=== PATIENT | female | born 1990 ===

== ENCOUNTER 2018-07-18 08:49 | Observation (INO) | payer OTHER ==
[2018-07-18] MEDS ORDERED: ceFAZolin 2 GM/DEXTROSE 100 ML IV ONE (11:30)
[2018-07-18] MEDS ORDERED: LIDOCAINE 1% 2 ML INJ ID PRN (11:36)
[2018-07-18] MEDS ORDERED: LR 1,000 ML IV ONE (11:36)
[2018-07-18] MEDS ORDERED: BUPIVACAINE/EPI 0.25% 30 ML SDV ONE (12:03)
[2018-07-18] MEDS ORDERED: THROMBIN (BOVINE) 5,000 UNIT VIAL TP ONE (12:04)
[2018-07-18] MEDS ORDERED: POLYMYXIN B SULFATE 500,000 UNIT/10 ML SYR IRR ONE (12:04)
[2018-07-18] MEDS ORDERED: BACITRACIN 50,000 UNITS/10 ML SYR IRR ONE (12:04)
[2018-07-18] MEDS ORDERED: MIDAZOLAM 2 MG/2 ML VIAL IVP ONE (12:05)
--- NOTE | 2018-07-18 12:06 | PDANEPAE ---
ANE History of Present Illness here for L Tibia tubercle ANE Past Medical History - Cardiovascular History Hx Hypertension: No Hx Arrhythmias: No Hx Chest Pain: No Hx Coronary Artery / Peripheral Vascular Disease: No Hx CHF / Valvular Disease: No Hx Palpitations: No - Pulmonary History Hx COPD: No Hx Asthma/Reactive Airway Disease: No Hx Recent Upper Respiratory Infection: No Hx Oxygen in Use at Home: No Hx Sleep Apnea: No Sleep Apnea Screening Result - Last Documented: Negative - Neurologic History Hx Cerebrovascular Accident: No Hx Seizures: No Hx Dementia: No - Endocrine History Hx Diabetes: No - Renal History Hx Renal Disorders: No - Liver History Hx Hepatic Disorders: No Hepatic History Comment: ED REMVD. - Neurological & Psychiatric Hx Hx Neurological and Psychiatric Disorders: No - Cancer History Hx Cancer: No - Congenital Disorder History Hx Congenital Disorders: No - GI History Hx Gastrointestinal Disorders: Yes Gastrointestinal History Comment: GERD - Other Health History Other Health History: MENIERE'S DX. CHRONIC SINUS PRESSURE/NASAL DRIP. LEGS CAN BRUISE EASILY - Chronic Pain History Chronic Pain: Yes (ELY KNEE'S) - Surgical History Prior Surgeries: ELY TIBIAL OSTEOTOMY 01/2018. ELY KNEE SCOPES. ED. SINUS X2 ANE Review of Systems Review of systems is: negative Review of Systems: - Exercise capacity Exercise capacity: >=4 METS METS (RN): 4 METS ANE Patient History - Allergies Allergies/Adverse Reactions: acetaminophen [From Percocet] Allergy (Verified 07/10/18 13:54) Itching Iodinated Contrast- Oral and IV Dye Allergy (Verified 07/10/18 13:54) Rash/Itching oxycodone [From Percocet] Allergy (Verified 07/10/18 13:54) Itching tramadol Allergy (Verified 07/10/18 13:54) Itching - Home Medications Home medications: home medication list seen and reviewed Home Medications: Acetaminophen [Tylenol 325mg (*)] 325 mg PO DAILY PRN 07/10/18 [Last Taken 07/11] DAPSONE [ACZONE] 1 sandro TP BID 07/10/18 [Last Taken 07/13/18] Herbals/Supplements -Info Only 1 ea PO DAILY 07/10/18 [Last Taken 07/18/18 06:00 ] Ipratropium 0.06% Nasal [Atrovent 0.06% Nasal (RX)] 1 sprays EACHNARE DAILY [Last Taken 07/18/18 06:00] Ranitidine HCl [Zantac] 150 mg PO DAILY 07/10/18 [Last Taken 07/18/18 06:00] Spironolactone [Aldactone 50 MG (RX)] 200 mg PO DAILY 07/10/18 [Last Taken 07/17 06:00] Tretinoin [Retin-A] 1 sandro TP DAILY 07/10/18 [Last Taken 07/17/18 20:00] Triamcinolone Acetonide [Nasacort] 1 spray NS DAILY 07/10/18 [Last Taken 06:00] - Smoking Hx Smoking Status: Never smoked ANE Labs/Vital Signs - Vital Signs Vital Signs: reviewed preoperatively; see RN documention for details Height: 170.18 cm Weight: 58.967 kg ANE Physical Exam - Airway Neck exam: FROM Mallampati Score: Class 1 - Pulmonary Pulmonary: no respiratory distress - Cardiovascular Cardiovascular: regular rate and rhythym - ASA Status ASA Status: I ANE Anesthesia Plan Anesthesia Plan: GA w LMA Regional Anesthesia: adductor canal FNB
--- NOTE | 2018-07-18 12:10 | PDHPUP ---
History & Physical Update H&P update statement: This history and physical update is based on an assessment of the patient which was completed after admission or registration (within 24 hours), but prior to the surgery/procedure. H&P update: H&P reviewed & patient examined, no change in patient's condition since H&P completed (Patient seen/examined in conjunction with Dr. Medel.)
[2018-07-18] MEDS ORDERED: fentaNYL 100 MCG/2 ML INJ ONE ×3 (12:15→15:22)
[2018-07-18] MEDS ORDERED: BUPIVACAINE 0.5% 30 ML SDV ONE (12:20)
[2018-07-18] MEDS ORDERED: PROPOFOL/EMULSION 500 MG/50 ML BOTTLE IV ONE ×2 (12:26→14:00)
[2018-07-18] MEDS ORDERED: EPINEPHrine 30 MG/30 ML MDV (0.1 MG/0.1 ML) ONE (12:27)
[2018-07-18] MEDS ORDERED: DEXAMETHASONE 4 MG/ML VIAL ONE ×2 (12:51)
[2018-07-18] MEDS ORDERED: ONDANSETRON 4 MG/2 ML VIAL ONE (12:51)
[2018-07-18] MEDS ORDERED: NS 500 ML IV PRN (13:04)
[2018-07-18] MEDS ORDERED: LR 500 ML IV PRN (13:04)
[2018-07-18] MEDS ORDERED: PROMETHAZINE HCL 25 MG/ML INJ IVP PRN (13:04)
[2018-07-18] MEDS ORDERED: NALOXONE HCL 0.4 MG/ML INJ IVP PRN (13:04)
[2018-07-18] MEDS ORDERED: HYDROmorphONE/DILAUDID 2 MG/ML INJ IVP PRN (13:04)
[2018-07-18] MEDS ORDERED: fentaNYL 100 MCG/2 ML INJ IVP PRN (13:04)
[2018-07-18] MEDS ORDERED: ALBUTEROL 3 ML DEYVIAL IH PRN (13:04)
[2018-07-18] MEDS ORDERED: ONDANSETRON 4 MG/2 ML VIAL IVP PRN ×2 (13:04→15:12)
[2018-07-18] MEDS ORDERED: DEXAMETHASONE 4 MG/ML VIAL IVP PRN (13:04)
[2018-07-18] MEDS ORDERED: BUPIVACAINE/EPI 0.5% 30 ML SDV ONE (14:52)
--- NOTE | 2018-07-18 15:11 | POSTOPPROG ---
Post Op Note Date of Operation: 07/18/18 Surgeon: Justin Medel Safety Instructor: Genny Whitman, NADINE Anesthesia: GET(General Endotracheal) Pre-op Diagnosis: Left tibial tubercle non-union Post-op Diagnosis: Left tibial tubercle non-union Procedure: Left tibia HW removal, anterior iliac crest bone graft, knee arthroscopy Inf/Abcess present in the surg proc area at time of surgery?: No Depth: Deep Incisional (Fascial) EBL: 50-100 Specimen(s): Left tibial tubercle non-union
[2018-07-18] MEDS ORDERED: HYDROmorphONE/DILAUDID 1 MG/ML INJ IVP PRN (15:12)
[2018-07-18] MEDS ORDERED: LR 1,000 ML IV SCH (15:30)
--- NOTE | 2018-07-18 15:36 | POSTANESTH ---
Post Anesthetic Evaluation Cardiovascular Status: Normal, Stable Respiratory Status: Normal, Stable Level of Consciousness/Mental Status: Can Participate in Eval Pain Control: Adequate, Prn Tx Ordered Nausea/Vomiting Control: Adequate, Prn Tx Ordered Complications Possibly Related to Anesthesia: None Noted
[2018-07-18] MEDS: HYDROCODONE/APAP 5/325 TAB PO PRN ×2 (17:09→20:22)
[2018-07-19] MEDS: HYDROCODONE/APAP 5/325 TAB PO PRN ×3 (01:52→09:59)
--- NOTE | 2018-07-19 02:34 | GOP ---
DATE OF OPERATION: 07/18/2018 SURGEON: Justin Medel MD HEDIS REGISTERED NURSE RN: Genny Whitman PA-C ANESTHESIA: General plus adductor block. ANESTHESIOLOGIST: Noble Dick MD PREOPERATIVE DIAGNOSIS: 1. Left knee tibial tubercle osteotomy nonunion. 2. Left knee retained painful hardware. 3. Left knee intra-articular derangement concerning for chondral defect versus lateral meniscus tear. POSTOPERATIVE DIAGNOSIS: 1. Left knee tibial tubercle osteotomy nonunion. 2. Left knee retained painful hardware. 3. Left knee patellar chondral defect. PROCEDURE PERFORMED: 1. Left knee open tibial tubercle nonunion takedown and autogenous bone grafting from ipsilateral iliac crest. 2. Left proximal tibia hardware removal (2 large fragment screws). 3. Left knee arthroscopic chondroplasty of patella. FINDINGS: EUA was without any focal ligamentous laxity. The patient was with approximately 2+ to 3 quadrant glide, medial, lateral of the patella, normal tilt. She had obvious anterior scar over the tibial tubercle. There were a prior portal scars as well. FROM of the knee. 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 The superior half of the osteotomy, involving the largest surface area was solidly united. Both 4.5mm screws were loose. No signs of gross infection. Arthroscopic findings: 1. Suprapatellar pouch was with mild synovitis. There was a medially based plica. No loose bodies or other abnormal findings throughout the pouch or gutters. 2. Patellofemoral joint was with normal tracking within the trochlea, neutral tilt. The inferior aspect of the medial facet of the patella was notable for a well-defined partial thickness chondral defect with a flap segment of cartilage inferior to this defect. Remainder of the patellar and all of the trochlear cartilage was intact and normal. 3. Notch was without any plica. Normal PCL and ACL. There was some scarring along the area over the inner meniscal ligament as well as the anterior interval. 4. Lateral compartment was normal throughout. 5. Medial compartment was normal throughout. 6. Posteromedial and posterolateral compartments were without any loose bodies , intact meniscal roots. Please note that the area along the anterior aspect of the lateral tibial plateau was directly inspected as well as the lateral femoral condyle and there were no signs of any kind of subtle or hidden lesions within this area. SPECIMENS: Nonunion fibrotic tissues were collected from the nonunion site and sent for culture including aerobic, anaerobic, and fungal. ESTIMATED BLOOD LOSS: 30 cc primarily from the iliac crest harvest site. INDICATIONS: This is a 28-year-old female who has had persistent left pretibial and anterolateral knee pain after a tibial tubercle osteotomy at an outside hospital. The patient presented to me for a second opinion and an additional evaluation after greater than 9 months of symptoms. Radiographs as well as plain films were consistent with nonunion at the inferior half of the osteotomy site of the tibial tubercle. The proximal portion of the tubercle osteotomy i.e., the widest and largest portion, was healed. Given the greater than 9 months of symptoms as well as no signs of healing including no signs of hypertrophy or callus formation whatsoever along the distal aspect of the osteotomy site, nonunion was by definition diagnosed. The patient had obvious tenderness to palpation that was most focal in the area of the nonunion which was palpable through her skin. Given the above, we discussed possible nonoperative management as well as surgery. The patient and her mother felt that she had exhausted all the conservative care at this point and were electing to proceed with surgery. The risks, benefits, alternatives were discussed with the patient. All of her questions were answered prior to surgery. Given that she had persistent anterolateral joint line and anterior knee pain we also elected to proceed with left knee arthroscopy. The patient has had prior arthroscopy of this knee and therefore was at increased risk for postoperative adhesions, as well as possible cartilage defect or meniscal tear given her presentation and history. A signed witnessed informed consent was obtained and placed in the patient's chart. Please see History and Physical for additional information. DESCRIPTION OF PROCEDURE: The patient was identified in the preoperative holding area and her left knee was signed and designated as the operative site. The patient was confirmed in right lower extremity MAGNOLIA hose and SCDs. She was treated with 2 g IV prophylactic cefazolin per protocol. She received an adductor block by Dr. Dick. Once anesthesia was obtained and the area was stable, the area over the left iliac crest and ASIS was prepped out as well as the left leg was prepped and draped in the usual sterile manner. Please note that a nonsterile tourniquet was placed over abundant cast padding at the proximal thigh. The initial portion of the case was arthroscopy. Standard anterolateral and anteromedial scope portals were established with a #11 blade. Complete diagnostic arthroscopy was performed with findings listed above. With the knee in anywhere from 0 to 15 degrees of flexion, the medial facet patellar chondral defect was addressed. This was probed. The primary portion of the defect was found to be stable without any flap segments. Just inferior to this; however, there was a small flap segment measuring approximately 8 or 9 mm in length and was unstable. This was carefully resected back to a stable base using the full-radius shaver. Once this chondral flap was resected, the remainder of the knee was scoped throughout. Great focus was placed on the lateral compartment and anterolateral portion of the tibial plateau as this appeared to be another area that was producing pain. There were no abnormal findings, and anatomy was normal throughout. The remainder of the knee was scoped throughout all compartments and found to be normal. The ACL and PCL were probed and were normal. Medial and lateral menisci were normal. Once this work was completed within the knee all excess saline was evacuated. The portals were closed with interrupted 3-0 nylon sutures. Esmarch exsanguination was used to inflate the tourniquet to 250 mmHg. The patient's scar over the tibial tubercle was used for the incision. The central 4 cm of the scar were used to create an incision with full-thickness incision made using a #10 blade. Careful dissection was taken down through the subcutaneous fat and scar. Due to the palpable nature of the ununited tibial tubercle segment, direct dissection down to this area with the Bovie cautery device was used. The area was exposed with standard retractors. The nonunion site was then carefully debrided with a small house curette as well as a small rongeur. All soft tissues were carefully removed from the 2 sides of bone. Next, a high-speed bur was used to freshen up the edges of the 2 segments i.e,. the osteotomized tubercle as well as the tibial plateau. Only limited burring was necessary as good bleeding bone was achieved relatively rapidly. Using a small K-wire, multiple fenestration holes were placed in the tibial plateau side of the nonunion site. More proximally, the osteotomy site was evaluated and was found to have a solid union throughout. The nonunited segment measured approximately 2.5 cm in length. This segment of bone was the inferior extent of the osteotomy site and the tibial tubercle, and therefore, it was well fixed given that the proximal portion was well healed. The 2 proximal screws were evaluated and both were found to be loose. Given the healing at the level of these screws proximally, the screws were removed in their entirety. Both screw tracts were curetted with a small house curette. These were then irrigated with the arthroscopic pump. Once the hardware was removed, the nonunion site was further addressed. Proximally the prepped left-sided iliac crest was initially approached with a 4 cm incision. A full-thickness dermal incision was made with a #10 blade and careful dissection was taken down through the subcutaneous fat with Metzenbaum scissors. Great care was taken to assure no damage or impact on the lateral femoral cutaneous nerve. Once dissection was carried down to the level of the overlying fascia at the iliac crest, a 3-sided trapdoor was created through the periosteal and soft tissue layer and then the small sagittal saw was used to create an osteotomy along 3 sites. A small osteotome was then used to enter into the osteotomy site and carefully elevate the superior aspect of the crest in a trapdoor type technique. The underlying cancellous bone was of excellent quality. A curette was used to remove the appropriate amount of cancellous bone graft and then this was transferred down into the tibial tubercle nonunion site. This was packed into position. Once the appropriate amount of bone graft was packed into the nonunion site, copious irrigation was performed throughout the nonunion site. Proximally, the blood from the cancellous bone was aspirated with the 10 cc syringe. Gelfoam was packed in the bone graft harvest site and left for about 5 minutes. This was then removed and the iliac crest harvest site was copiously irrigated with the pump from the arthroscopic equipment. Once all work was completed, the iliac crest was closed. The trapdoor segment of the superior portion of the crest was carefully tamped down into position. This was then closed and held in position with multiple 0 Vicryl sutures. The soft tissues were then closed with multiple 3-0 Vicryl sutures. The deep dermal layer was closed with 3-0 Monocryl sutures. The skin was closed with a 3-0 Prolene subcuticular running stitch. Benzoin and Steri- Strips were applied to the iliac crest bone harvest site. The tibial tubercle site was then bathed and covered with the crest aspirate which was essentially a blood clot at this point. This was further carefully pressed out into the bone graft site with my finger. Once this was completed, closure was begun. The soft tissues over the osteotomy site were carefully closed with multiple 0 Vicryl sutures to both achieve closure of the soft tissues as well as maintain the bone graft in its position. The deep dermal layer was closed with multiple 3-0 Vicryl sutures. The skin was closed with multiple 3-0 nylon sutures. The tourniquet was dropped prior to skin closure and excellent hemostasis was confirmed. Sterile postoperative surgical dressings were applied over the iliac crest harvest site as well as the tibial tubercle osteotomy site. The left knee was placed in a hinged knee brace after MAGNOLIA hose. The anesthesia service then took over to wake the patient up. TOURNIQUET TIME: 44 minutes at 250 mmHg. DRAINS: None. IMPLANTS: None. COMPLICATIONS: None. DISPOSITION: The patient was extubated and transferred to the PACU in stable condition. /[id number]/MODL MTDD
--- NOTE | 2018-07-19 07:54 | SOAPPROG ---
<Genny Whitman S - Last Filed: 07/19/18 09:35> SOAP Progress Note Assessment/Plan: Assessment: POD#1: Left LE tibial tubercle HW removal, osteotomy and knee scope with iliac crest harvest: overall doing well, pain controlled: 12/28. Plan: Weight bearing as tolerated in brace, maintain brace that is locked in full extension. Pain medications: Rx for Nancy 5/325, take 1-2 every 6-8 hours as needed for pain. Has Rx given at pre-op which can be taken for pain. Rx given for cyclobenzaprine to be taken 1 po q8-10hr prn muscle spasm. Please do not use Tylenol or NSAIDs as this may inhibit fracture healing. For DVT prevention: Continue MAGNOLIA hose for 14 days for DVT prevention. Continue incentive spirometry shown in hospital and ankle/foot range of motion per PT/OT. PT/OT: WBAT in brace locked in extension. Do not change dressing unless consult our office first. Notify us with abnormal bleeding, oozing, discharge, change in heat/color around wound sites or of extremities. Follow up with Dr. Medel's office for originally scheduled first post-op appointment. Dispo: Can D/C once meets PT/OT reccs, floor criteria per CM. Appreciate their reccs. Notify our office and/or seek immediate medical attention if notice worsening pain over time, fever, chills, abnormal numbness/tingling, worsening change in range of motion or strength, cramping in your calves or ankles, change in heat/ color of extremity, cough, congestion, chest pain or shortness of breath. Questions/concerns can be directed to Dr. Medel's office at [phone]. Patient seen/examined in conjunction with Dr. Medel. 07/19/18 07:54 Subjective: Mother in room. Sitting up in bed. Able to respond appropriately to questions/ commands. Pain well controlled: 12/28. Eating normally, passing flatus. Denies change in heat/color of extremity, cough, congestion, chest pain or shortness of breath, worsening pain over time, fever, chills, abnormal numbness/tingling, worsening change in distal ROM or strength, cramping in her calves or ankles Objective: Vital Signs Temp Pulse Resp BP Pulse Ox 36.8 C 66 16 100/47 L 93 07/19/18 03:54 07/19/18 03:54 07/19/18 03:54 07/19/18 03:54 07/19/18 03:54 Microbiology 07/18/18 13:53 Gram Stain - Final Leg - Tissue 07/18/18 07/19/18 07/20/18 05:59 05:59 05:59 Intake Total 2080 Output Total 725 Balance 1355 AO, NAD, non-labored breathing, no diaphoresis. Afebrile. Abdomen soft, non- tender. MS: Left lower extremity: left knee bandaged with no change in heat/color around wound site or of extremity. No abnormal bleeding/oozing/discharge noted. All compartments soft with negative passive stretch. Have patient locked in extension in knee brace. Has FROM distally in left foot/ankle with no focal deficits noted; 5/5 strength present in left foot/ankle. Calves soft/supple and NTTP b/l with negative bilateral Homans b/l with MAGNOLIA hose on and SCDs on and pumping b/l. DNVI b/l in BLLE with no focal deficits. Brisk cap refill b/l with pedal pulses intact b/l; no deficits. Left hip: wound bandaged with no abnormal bleeding/oozing/discharge noted; no change in heat/color around wound site. Minimally TTP over incision site. X-ray: 2 views of left knee show hardware removed; no signs of fracture, malalignment. Labs: Pending to date. Negative thus far. - Pending Discharge Pending Discharge Within 24 Hours: Yes Pending Discharge Date: 07/20/18 Pending Discharge Time: 11:00 ICD10 Worksheet Patient Problems: Problems Problem Status Onset tibial tubercle non-union Acute <Justin Medel R - Last Filed: 07/19/18 10:00> SOAP Progress Note Assessment/Plan: Assessment: Plan: 07/19/18 09:55 See note above. OK to use Tylenol, but avoid any NSAIDs. She has had a problem with constipation in the past, therefore I've emphasized the importance of weaning narcotics NIKKI. Prunes/prune juice with each meal, and they have colace at home which may be used prn. Brace on her knee for all ambulation, WBAT locked in extension, may remove brace when in bed and off her feet. She may begin A/AAROM L knee now while off her feet - heel slides and ROM exercises reviewed now. Activity and mechanical VTE prophylaxis again reviewed with Dionne and Mom. MAGNOLIAs x 14 days post-op. OK to d/c home today, after last dose of IV cefazolin proph. F/u with me in clinic 10-12 days post-op. Please call with any questions. Objective: Vital Signs Temp Pulse Resp BP Pulse Ox 37.0 C 81 14 110/68 94 07/19/18 08:00 07/19/18 08:00 07/19/18 08:00 07/19/18 08:00 07/19/18 08:00 Microbiology 07/18/18 13:53 Gram Stain - Final Leg - Tissue 07/18/18 07/19/18 07/20/18 05:59 05:59 05:59 Intake Total 2080 Output Total 725 Balance 1355
[2018-07-19] MEDS ORDERED: ASPIRIN 81 MG CHEWABLE TAB PO SCH (09:00)
[2018-07-19] MEDS ORDERED: CYCLOBENZAPRINE 10 MG TAB PO SCH (09:00)
--- NOTE | 2018-07-19 12:06 | ASDISCHSUM ---
Discharge Information Plan Status:Home with No Needs Medically Cleared to Leave:07/18/2018 Discharge Date:07/18/2018 CM D/C Disposition:Home, Routine, Self-Care ADT D/C Disposition:Home, Routine, Self-Care Projected Discharge Date:07/18/2018 Transportation at D/C: Discharge Delay Reason: Follow-Up Date:07/18/2018 Discharge Slot: Final Diagnosis: Placement Information Patient Contact Information Contact Name:MARCIE Relationship:Mother Address: Work Phone: City: [facility] Phone: State/[employer] Code: Email: Financial Information Financial Class:[employer] Primary Plan Desc:[facility] Primary Plan Number:[id number] Secondary Plan Desc: Secondary Plan Number: Assessment Information LACE LACE Length of stay for Answers: 1 day current admission Acuity / Level of Answers: No Care: Did the patient have an inpatient admission? Comorbidities - select Answers: Opioid dependence all that apply / Chronic pain Other Notes: GERD # of Emergency department Answers: 0 visits in the last 6 months Score: 6 Date Signed: 07/19/2018 12:03 PM Electronically Signed By:Gi Altamirano RN Case Management Discharge Plan Note Case Management Discharge Discharge Order Complete? Answers: Yes Discharge Comments Notes: 07/19/2018 Case Management Note Case Management d/c poc: independent with follow up as directed. PT cleared pt to return to home. Date Signed: 07/19/2018 12:04 PM Electronically Signed By:Gi Altamirano RN Intervention Information
[2018-07-19 12:22] VITALS: BP 100/64
[2018-07-20] MEDS ORDERED: IPRATROPIUM 0.06% NASAL SPRAY EACHNARE SCH (09:00)
[2018-07-20] MEDS ORDERED: SPIRONOLACTONE 50 MG TAB PO SCH (09:00)
[2018-07-20] MEDS ORDERED: TRIAMCINOLONE ACETONIDE NS SCH (09:00)
[2018-07-20] MEDS ORDERED: Herbals/Supplements -Info Only PO SCH (09:00)
[2018-07-20] MEDS ORDERED: FAMOTIDINE 20 MG TAB PO SCH (09:00)
[2018-07-20] MEDS ORDERED: TRETINOIN TP SCH (09:00)
== END 2018-07-19 13:56 | disposition home or self-care (01) ==
LOC: F3N 10:55 → PREINTOOBSV 14:46 → F3N 16:46
PROVIDERS: ADMIT Orthopaedic Surgery; ATTEND Orthopaedic Surgery
DX: S82.15 Fracture of tibial tuberosity (principal); T84.84XA Pain due to internal orthopedic prosthetic devices, implants and grafts, initial encounter; T84.033A Mechanical loosening of internal left knee prosthetic joint, initial encounter; M24.10 Other articular cartilage disorders, unspecified site; M65.9 Synovitis and tenosynovitis, unspecified; H81.09 Meniere's disease, unspecified ear; K21.9 Gastro-esophageal reflux disease without esophagitis
CPT/HCPCS: 27724; 73560; 97161; 97165; G0378; J0171; J0690; J1100; J2250; J2405; J2704; J3010